=== PATIENT | male | born 1990 | race Caucasian/White ===

== ENCOUNTER 2025-05-05 13:36 | Emergency (ER) | payer OTHER, SELFPAY ==
[2025-05-05 13:43] VITALS: BP 130/78
[2025-05-05 14:39] LABS: Urine Character Clear (Clear)
[2025-05-05 14:48] LABS: Urine Squamous Cell 0-2 /LPF (Few)
--- NOTE | 2025-05-05 15:07 | ED.GENMED ---
History of Present Illness
General
Chief Complaint: Urinary Symptoms
Source: patient
Exam Limitations: none
Time Seen by Provider: 05/05/25 14:35
History of Present Illness
History of Present Illness:
34-year-old male presents with dysuria increased frequency incomplete bladder emptying sensation over the past 2 to 3 weeks. He endorses unprotected sexual intercourse frequently in the recent past. He was seen in urgent care and has been tested
for STDs all of which were negative. He notes persistent symptoms. He denies fevers but he does note ongoing right flank pain. He is due to see a urologist in 2 weeks. No injury otherwise. No other complaints.
Phy Exam
Physical Exam
Physical Exam:
General: Well-appearing male no acute respiratory distress
HEENT: Normal cephalic atraumatic
Heart: Regular rate and rhythm lungs: Clear no wheeze
Abdomen is soft nontender mild right sided costovertebral angle tenderness
Ext: no cyanosis or edema
skin: Warm, no rash
Course
Orders/Labs/Results
Orders:
Orders
05/05/25 14:31
Urinalysis Urgent
Date Specimen was Collected: 05/05/25
Time Specimen was Collected: 13:57
Urine Microscopic Urgent
Date Specimen was Collected: 05/05/25
Time Specimen was Collected: 13:57
Chlamydia/GC by PCR Urgent
MAHNI Source: U
Specimen Description:
Source:: URINE
Date Specimen was Collected: 05/05/25
Time Specimen was Collected: 13:57
Comment: Add on per Constantin Lake PA-C
05/05/25 14:55
Add On - Microbiology Urgent
Tests Added?: urine gonorrhea/chlamydia
Complete Blood Count/With Diff Urgent
Comprehensive Metabolic Panel Urgent
05/05/25 15:48
CT Abd/pel Without Iv Or Oral Urgent
Comment:
Reason For Exam: flank pain, hematuria
05/05/25 18:00
Crisis Consult Urgent
Reason for Consult: paranoia
Abnormal Lab Results
05/05/25
14:31
Urine Occult Blood 2+ A
(Negative)
Urine RBC 7-10 A /HPF
(0-2)
Vital Signs
Initial and Last Documented VS:
Initial Vital Signs
Temp Pulse Resp BP Pulse Ox
98.0 F 78 16 130/78 98
05/05/25 13:43 05/05/25 13:43 05/05/25 13:43 05/05/25 13:43 05/05/25 13:43
Last Documented Vital Signs
Temp Pulse Resp BP Pulse Ox
98.0 F 78 16 130/78 98
05/05/25 13:43 05/05/25 13:43 05/05/25 13:43 05/05/25 13:43 05/05/25 15:12
MDM/Problems Addressed
Differential Diagnosis Includes:
Urinary symptoms of dysuria increased frequency and incomplete bladder emptying. Consider urethritis, I have reviewed recent STD testing from the urgent care all of which were negative. Will repeat today. Urinalysis is pending today to consider
cystitis or hemorrhagic cystitis versus kidney stone. CT pending
*Pulse Oximetry
SaO2: 98
Oxygen Mode of Delivery: Room air
Patient hypoxic: no
*Critical Care Note
Total Time (30-74mins, 75-104mins- exclusive of procedures): Not Applicable
Update Note
Update Note:
CT shows calcifications in the prostate and mild hydrocele but no other acute finding. Patient does have hematuria. Question hemorrhagic cystitis. Will cover with antibiotic and Pyridium given his symptoms. Will have him follow-up with urology
as planned
ED Attending Note
-
Portions of this chart may have been created with voice recognition software.� Occasional wrong word or��sound alike� substitutions may have occurred due to the inherent limitations of voice recognition software.
Discharge Plan
Departure
Patient Disposition: Home (Routine Discharge)
Date of Disposition: 05/05/25
Time of Disposition: 18:05
Patient with high blood pressure during this ER visit?: No
Discharge Problem:
Hematuria
Instructions: Blood in the Urine (Hematuria), Adult (DC)
Prescriptions:
New
cefdinir 300 mg capsule
300 mg PO BID Qty: 10 0RF
phenazopyridine [Pyridium] 200 mg tablet
200 mg PO TID PRN (Reason: Pain) Qty: 10 0RF
Referrals:
Cam Silver MD [Family Provider, Family Practice]
Activity Restrictions/Additional Instructions:
Follow-up with urology as planned. Use medicine as prescribed.
Interventions
Interventions:
*Risk Screen - Suicide Last Done: 05/05/25 13:43
*General Assessment Last Done: 05/05/25 13:43
*Neglect/Abuse Screening Last Done: 05/05/25 13:43
*ED- Fall Risk Assessment Last Done: 05/05/25 15:16
*ED COVID-19 Vaccine History Last Done: 05/05/25 16:29
*ED Influenza Vaccine History Last Done: 05/05/25 16:29
ED-Male Genitourinary Assessment Last Done: 05/05/25 16:29
Discharge Date and Time
Print Language: NAURUAN
== END 2025-05-05 19:07 | disposition home or self-care (01) ==
LOC: EMR 13:36
PROVIDERS: Student in an Organized Health Care Education/Training Program; EMERGENCY PHYSICIAN Emergency Medicine; FAMILY PHYSICIAN Family Medicine
DX: R31.9 Hematuria, unspecified (principal); N43.3 Hydrocele, unspecified; R10.A1 Flank pain, right side
CPT/HCPCS: 99284; 74176; 81003; 81015; 87491; 87591